=== PATIENT | female | born 1955 | race Caucasian/White ===

== ENCOUNTER → 2023-05-21 | Emergency (ER) | payer OTHER ==
--- OUTSIDE RECORDS SUMMARY | 2023-05-21 14:45 | XMS REPORT | Clinical Summary ---
Author Name Unknown Organization [facility] Address [address] [place] [address] Care Team Providers Care Medical Health Researcher Name Role Phone Rex Allen MD Unavailable Billy Oglesby MD Primary Care Provider [phone] Allergies Active Allergy Reactions Criticality Noted Date Comments Lisinopril 05/19/2020 cough Medications Medication Sig Dispensed Refills Start Date End Date Status alendronate (FOSAMAX) 35 mg tablet TAKE ONE (1) TABLET(S) BY MOUTH EVERY WEEK 30 MINUTES BEFORE THE FIRST FOOD, BEVERAGE, OR MEDICINE OF THE DAY WITH PLAIN WATER. 0 11/27/2022 Active atorvastatin (LIPITOR) 20 mg tablet TAKE ONE (1) TABLET(S) BY MOUTH ONCE A DAY. 0 Active buPROPion (WELLBUTRIN XL) 300 mg 24 hr tablet TAKE ONE (1) TABLET(S) BY MOUTH EVERY MORNING. 0 02/19/2023 Active carvedilol (COREG) 6.25 mg tablet TAKE ONE (1) TABLET(S) BY MOUTH TWICE A DAY WITH MEALS. 0 02/19/2023 Active clobetasol (TEMOVATE) 0.05% ointment APPLY A SMALL AMOUNT TO AFFECTED AREA TWICE WEEKLY. 0 03/02/2023 Active melatonin 3 mg tablet Take 1 tablet (3 mg) by mouth nightly as needed. 0 Active acetaminophen (TYLENOL) 325 mg tablet Take 1 tablet (325 mg) by mouth every 4 (four) hours as needed for mild pain. 0 Active prochlorperazine (Compazine) 10 mg tabletIndications: Malignant neoplasm of endometrium,Carcin omatosis of peritoneal cavity Take 1 tablet (10 mg) by mouth every 6 (six) hours as needed for nausea or vomiting (breakthrough). 30 tablet 3 05/12/2023 Active ondansetron (Zofran) 8 mg tabletIndications: cancer chemotherapy-induc ed nausea and vomiting,preventio n of chemotherapy-induc ed nausea and vomiting Take 1 tablet (8 mg) by mouth every 12 (twelve) hours as needed for nausea or vomiting. for two days after chemotherapy then, PRN. 15 tablet 3 05/12/2023 Active traMADol (Ultram) 50 mg tabletIndications: Malignant neoplasm of endometrium,Carcin omatosis of peritoneal cavity Take 1 tablet (50 mg) by mouth every 6 (six) hours as needed for moderate pain. 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 Hypertension 04/21/2023 Lichen sclerosus 04/21/2023 Chronic kidney disease stage 3 04/21/2023 Hyperlipidemia 04/21/2023 Family history of breast cancer gene BRCA mutati on 04/21/2023 Malignant neoplasm of endometrium 04/05/2023 Encounters Date Type Department Care Team Description 05/21/2023 Mobile Encounter MD [facility] Breast [facility] On[facility] [address] [place] [address] Jaycob Pascual MD 05/21/2023 Nurse Triage [facility] [place] [address] Prince Mulligan APRN 05/20/2023 Telephone MD [facility] - Infusion [address] [address] Pool Grant Jr., RN Follow-up 05/19/2023 7:45 AM SAFETY ADVISOR Infusion MD [facility] [place] [facility] [address] [address] Rose Mary Chong PA Carcinomatosis of peritoneal cavity (Primary Dx); Malignant neoplasm of endometrium 05/19/2023 Travel 05/18/2023 Orders Only [facility] [address] [place] [id number] Billy Oglesby MD Malignant neoplasm of endometrium (Primary Dx); Carcinomatosis of peritoneal cavity 05/12/2023 8:00 AM SAFETY ADVISOR Follow-Up [facility] [address] [place] [id number] Billy Oglesby MD Encounter for examination prior to antineoplastic chemotherapy (Primary Dx); Malignant neoplasm of endometrium; Carcinomatosis of peritoneal cavity 05/12/2023 Travel 05/09/2023 Orders Only [facility] [address] [place] [address] Rose Mary Chong PA Malignant neoplasm of endometrium (Primary Dx); Carcinomatosis of peritoneal cavity; Encounter for examination prior to antineoplastic chemotherapy 05/05/2023 9:30 AM SAFETY ADVISOR Follow-Up [facility] [address] [place] [id number] Billy Oglesby MD Malignant neoplasm of endometrium (Primary Dx) 05/05/2023 Travel 04/29/2023 Telephone [facility] [address] [place] [phone] Rose Mary Chong PA 04/28/2023 1:45 PM SAFETY ADVISOR Ancillary Procedure [address] [address] Rose Mary Chong PA Malignant neoplasm of endometrium 04/28/2023 Travel 04/26/2023 Orders Only [facility] [address] [place] [address] Rose Mary Chong PA Malignant neoplasm of endometrium (Primary Dx) 04/22/2023 Lab Requisition [facility] Travis Villasenor MD Tyler, Latonia Evette, MD Discharge Disposition: Home 04/21/2023 10:00 AM SAFETY ADVISOR Office Visit [facility] [address] [place] [phone] Billy Oglesby MD Malignant neoplasm of endometrium (Primary Dx); Chronic kidney disease stage 3; Hypertension; Family history of breast cancer gene BRCA mutation; Lichen sclerosus 04/21/2023 9:30 AM SAFETY ADVISOR [facility] PATIENT ACCESS Billy Oglesby MD 04/21/2023 Travel 04/07/2023 8:10 PM SAFETY ADVISOR Ancillary Procedure [facility] [address] [place] [id number] Billy Oglesby MD Cancer 04/07/2023 8:05 PM SAFETY ADVISOR Ancillary Procedure [facility] [address] [place] [id number] Billy Oglesby MD Cancer 04/07/2023 8:00 PM SAFETY ADVISOR Ancillary Procedure [facility] [address] [place] [id number] Billy Oglesby MD Cancer 04/06/2023 Lab Requisition [facility] Travis Villasenor MD Nguyen, Huy Q Discharge Disposition: Home after 05/21/2022 Surgical History Surgery Date Site/Laterality Comments COLONOSCOPY 3 -4 yrs? HERNIA REPAIR 20yrs hiatel hernia repair, with esopogus repair LIVER BIOPSY 20yrs with hernia repair KNEE SURGERY Right meniscus repair CATARACT EXTRACTION, BILATERAL Right Medical History Medical History Date Comments Hypertension Feb 2020 Hyperlipidemia 10yrs? Cyst of breast yrs firocystic Fatty liver 20 yrs mild Diverticulitis 4yrs mild Irritable bowel syndrome 4ys Kidney failure May 2020 Urinary incontinence yrs Menopause age 37 Uterine leiomyoma yrs one small Scoliosis Feb 2022 Depressive disorder yrs Anxiety yrs Squamous cell carcinoma in situ of skin October Lichen sclerosus Glaucoma Family History Medical History Relation Name Comments Prostate cancer Brother Messi Naidu 2022 Lung cancer Maternal Aunt Zayra Lezama Prostate cancer Maternal Uncle 1 Mauricio Brothers d Lung cancer Maternal Uncle 2 Lenoard Brothere d Kidney cancer Mother Raquel Naidu Breast cancer Niece Georgina Werner TNBC positive for BRCA Relation Name Status Comments Brother Messi Naidu Alive Maternal Aunt Zayra Lezama (Age 75) Maternal Uncle 1 Mauricio Brothers (Age 80) Maternal Uncle 2 Lenoard Brothere (Age 72) Mother Raquel Naidu (Age 81) Niece Georgina Werner Alive Social History Tobacco Use Types Packs/Day Years Used Date Smoking Tobacco: Never Passive Smoke Exposure: Never Smokeless Tobacco: Never Tobacco Cessation:Counseling Given: Not Answered Alcohol Use Standard Drinks/Week Comments Never 0 (1 standard drink = 0.6 oz pur e alcohol) Sex and Gender Information Value Date Recorded Sex Assigned at Female 04/05/2023 12:45 PM SAFETY ADVISOR Gender Identity Female 04/05/2023 12:45 PM SAFETY ADVISOR Sexual Orientation Straight 04/05/2023 12 :45 PM SAFETY ADVISOR Job Start Date Occupation Industry Not on file Not on file Not on file Obstetrics History Para Term AB IAB SAB Ectopic Multiple Livin g Live Births 2 2 2 2 Date Outcome GA Total Labor Labor/2nd/3rd Weight Sex Delivery Anes PTL Mile A1 A5 Name Cl in Term Term Comments Menarche: age 11 Last PAP: 10/2022- normal Periods: Regular or Irregular Parity: age 19 HRT: total 10-15 years- premarin OCP:age [age] Menopause: age 37 natural- Fertility Tx: none Breastfeed: 3 months each child Last Filed Vital Signs Vital Sign Reading Time Taken Comments Blood Pressure 116/76 05/19/2023 1:08 PM SAFETY ADVISOR Pulse 71 05/19/2023 1:08 PM SAFETY ADVISOR Temperature 36.6 C (97.9 F) 05/19/2023 8:08 AM CS T Respiratory Rate 16 05/19/2023 1:08 PM SAFETY ADVISOR Oxygen Saturation 99% 05/19/2023 8:08 AM SAFETY ADVISOR Inhaled Oxygen Concentration - - Weight 77.1 kg (169 lb 15.6 oz) 05/19/2023 8:03 AM SAFETY ADVISOR Height 152.5 cm (5' 0.04") 05/19/2023 8:03 AM CS T Body Mass Index 33.15 05/19/2023 8:03 AM SAFETY ADVISOR Plan of Treatment Upcoming Encounters Date Type Department Care Team Description 06/01/2023 12:00 PM SAFETY ADVISOR Telemedicine MD [facility] [place] [facility] [address] [place] [phone] Rose Mary Chong PA [address] [place] [address] 06/09/2023 7:30 AM SAFETY ADVISOR Lab MD [facility] [address] [place] [address] [place] [address] Rose Mary Chong PA [address] [place] [address] 06/09/2023 8:30 AM SAFETY ADVISOR Follow-Up MD [facility] [place] [facility] Gyne[facility] Oncology [address] [place] [address] Billy Oglesby MD [address] [place] [address] 06/09/2023 9:00 AM SAFETY ADVISOR Infusion MD [facility] [place] [facility] [address] [place] [address] Rose Mary Chong PA [address] [place] [address] Health Maintenance Due Date Last Done Comments COVID-19 Vaccination (#1) 1960 Procedures Procedure Name Priority Date/Time Associated Diagnosis Comments .CBC Routine 05/19/2023 7:05 AM SAFETY ADVISOR Malignant neoplasm of endometrium Carcinomatosis of peritoneal cavity CREATININE Routine 05/19/2023 7:05 AM SAFETY ADVISOR Malignant neoplasm of endometrium Carcinomatosis of peritoneal cavity BLOOD UREA NITROGEN Routine 05/19/2023 7 :05 AM SAFETY ADVISOR Malignant neoplasm of endometrium Carcinomatosis of peritoneal cavity CALCIUM LEVEL Routine 05/19/2023 7:05 AM SAFETY ADVISOR Malignant neoplasm of endometrium Carcinomatosis of peritoneal cavity MAGNESIUM LEVEL Routine 05/19/2023 7:05 AM SAFETY ADVISOR Malignant neoplasm of endometrium Carcinomatosis of peritoneal cavity ELECTROLYTE PANEL Routine 05/19/2023 7:0 5 AM SAFETY ADVISOR Malignant neoplasm of endometrium Carcinomatosis of peritoneal cavity BILIRUBIN TOTAL Routine 05/19/2023 7:05 AM SAFETY ADVISOR Malignant neoplasm of endometrium Carcinomatosis of peritoneal cavity ALKALINE PHOSPHATASE Routine 05/19/2023 7:05 AM SAFETY ADVISOR Malignant neoplasm of endometrium Carcinomatosis of peritoneal cavity ALANINE AMINOTRANSFERASE Routine 023 7:05 AM SAFETY ADVISOR Malignant neoplasm of endometrium Carcinomatosis of peritoneal cavity ASPARTATE AMINOTRANSFERASE Routine 05/19/2023 7:05 AM SAFETY ADVISOR Malignant neoplasm of endometrium Carcinomatosis of peritoneal cavity COMPLETE BLOOD COUNT W/ DIFFERENTIAL Routine 05/19/2023 7:05 AM SAFETY ADVISOR Malignant neoplasm of endometrium Carcinomatosis of peritoneal cavity .CBC Routine 05/05/2023 11:32 AM SAFETY ADVISOR Malignant neoplasm of endometrium COMPLETE BLOOD COUNT W/ DIFFERENTIAL Routine 05/05/2023 11:32 AM SAFETY ADVISOR Malignant neoplasm of endometrium CT CHEST ABDOMEN PELVIS W CONTRAST Routine 04/28/2023 2:59 PM SAFETY ADVISOR Malignant neoplasm of endometrium .CBC Routine 04/21/2023 12:11 PM SAFETY ADVISOR Malignant neoplasm of endometrium CANCER ANTIGEN 125 Routine 04/21/2023 12 :11 PM SAFETY ADVISOR Malignant neoplasm of endometrium ALBUMIN LEVEL Routine 04/21/2023 12:11 PM SAFETY ADVISOR Malignant neoplasm of endometrium COMPLETE BLOOD COUNT W/ DIFFERENTIAL Routine 04/21/2023 12:11 PM SAFETY ADVISOR Malignant neoplasm of endometrium MAGNESIUM LEVEL Routine 04/21/2023 12:11 PM SAFETY ADVISOR Malignant neoplasm of endometrium ELECTROLYTE PANEL Routine 04/21/2023 12: 11 PM SAFETY ADVISOR Malignant neoplasm of endometrium ASPARTATE AMINOTRANSFERASE Routine 04/21/2023 12:11 PM SAFETY ADVISOR Malignant neoplasm of endometrium ALANINE AMINOTRANSFERASE Routine 023 12:11 PM SAFETY ADVISOR Malignant neoplasm of endometrium FRACTIONATED BILIRUBIN Routine 12:11 PM SAFETY ADVISOR Malignant neoplasm of endometrium CREATININE Routine 04/21/2023 12:11 PM SAFETY ADVISOR Malignant neoplasm of endometrium BLOOD UREA NITROGEN Routine 04/21/2023 1 2:11 PM SAFETY ADVISOR Malignant neoplasm of endometrium GLUCOSE, RANDOM Routine 04/21/2023 12:11 PM SAFETY ADVISOR Malignant neoplasm of endometrium HEMOGLOBIN A1C Routine 04/21/2023 12:11 PM SAFETY ADVISOR Malignant neoplasm of endometrium HIV 1/2 ANTIGEN/ANTIBODY, FOURTH GEN W/RFL Routine 04/21/2023 12:11 PM SAFETY ADVISOR Malignant neoplasm of endometrium HEPATITIS B SURFACE ANTIGEN Routine 04/21/2023 12:11 PM SAFETY ADVISOR Malignant neoplasm of endometrium HEPATITIS C VIRUS ANTIBODY Routine 04/21/2023 12:11 PM SAFETY ADVISOR Malignant neoplasm of endometrium PATHOLOGY OUTSIDE INTERPRETATION Routine 03/10/2023 OSI US PELVIC Routine 02/01/2023 2:28 PM CDT Cancer OSI US BREAST Routine 02/01/2023 2:28 PM CDT Cancer OSI MAMMO BILATERAL Routine 02/01/2023 2 :27 PM CDT Cancer PATHOLOGY OUTSIDE INTERPRETATION Routine 11/18/2022 after 05/21/2022 Results * (ABNORMAL) .CBC (05/19/2023 7:05 AM SAFETY ADVISOR) Only the most recent of3 resultswithin the time period is included. Pathologist [facility] White Blood Cell 5.6 4.1 - 10.5 K/uL 05/19/2023 7:10 AM SAFETY ADVISOR [place] Red Blood Cell 4.15 3.99 - 5.46 M/uL 05/19/2023 7:10 AM [facility] Hemoglobin 12.9 12.2 - 15.3 g/dL 05/19/2023 7:10 AM [facility] Hematocrit 40.0 36.4 - 46.8 % 05/19/2023 7:10 AM [facility] Mean Cell Volume 96 82 - 99 fL 05/19/2023 7:10 AM [facility] Mean Cell Hemoglobin 31.1 26.6 - 33.2 pg 05/19/2023 7:10 AM [facility] Mean Cell Hemoglobin Concentration 32.3 31.1 - 35.2 g/dL 05/19/2023 7:10 AM [facility] RDW-SD 49.9(H) 37.5 - 49.7 fL 05/19/2023 7:10 AM [facility] Red Cell Diameter Width 14.0 11.6 - 15.5 % 05/19/2023 7:10 AM [facility] Platelet 213 160 - 397 K/uL 05/19/2023 7:10 AM [facility] Mean Platelet Volume 10.2 9.1 - 12.6 fL 05/19/2023 7:10 AM [facility] Neutrophil % 55.9 43.2 - 72.7 % 05/19/2023 7:10 AM [facility] Lymphocyte % 25.6 16.8 - 46.2 % 05/19/2023 7:10 AM [facility] Monocyte % 15.3(H) 5.1 - 12.5 % 05/19/2023 7:10 AM [facility] Eosinophil % 2.3 0.4 - 6.3 % 05/19/2023 7:10 AM [facility] Basophil % 0.7 0.2 - 1.4 % 05/19/2023 7:10 AM [facility] IGRE % 0.2 0.1 - 1.5 % 05/19/2023 7:10 AM [facility] Comment:The IGRE% includes M etamyelocytes, Myelocytes and Promyelocytes. Neutrophil Abs 3.14 1.95 - 7.25 K/uL 05/19/2023 7:10 AM [facility] Lymphocyte Abs 1.44 1.01 - 3.24 K/uL 05/19/2023 7:10 AM [facility] Monocyte Abs 0.86(H) 0.24 - 0.85 K/uL 05/19/2023 7:10 AM [facility] Eosinophil Abs 0.13 0.02 - 0.50 K/uL 05/19/2023 7:10 AM [facility] Basophil Abs 0.04 0.02 - 0.09 K/uL 05/19/2023 7:10 AM [facility] IG Abs 0.01 0.01 - 0.12 K/uL 05/19/2023 7:10 AM [facility] Blood Peripheral blood specimen / Unknown Venipuncture / Unknown 05/19/2023 7:05 AM SAFETY ADVISOR 05/19/2023 7:05 AM SAFETY ADVISOR Rose Mary [facility]ON[facility] LAB BLOOD ORDERABLES [address] [address] * BUN (05/19/2023 7:05 AM SAFETY ADVISOR) Only the most recent of2 resultswithin the time period is included. BUN 20 6 - 23 mg/dL 05/19/2023 7 :28 AM [facility] Blood Peripheral blood specimen / Unknown Venipuncture / Unknown 05/19/2023 7:05 AM SAFETY ADVISOR 05/19/2023 7:05 AM SAFETY ADVISOR Rose Mary [facility] LAB BLOOD ORDERABLES [address] [address] * ALT (05/19/2023 7:05 AM SAFETY ADVISOR) Only the most recent of2 resultswithin the time period is included. ALT 17 <=33 U/L 05/19/2023 7:2 8 AM [facility] Blood Peripheral blood specimen / Unknown Venipuncture / Unknown 05/19/2023 7:05 AM SAFETY ADVISOR 05/19/2023 7:05 AM SAFETY ADVISOR Rose Mayr [facility] BLOOD ORDERABLES [address], [address] [address] * AST (05/19/2023 7:05 AM SAFETY ADVISOR) Only the most recent of2 resultswithin the time period is included. AST 26 <=32 U/L 05/19/2023 7:2 8 AM SAFETY ADVISOR [place] Blood Peripheral blood specimen / Unknown Venipuncture / Unknown 05/19/2023 7:05 AM SAFETY ADVISOR 05/19/2023 7:05 AM SAFETY ADVISOR Rose Mary [facility] BLOOD ORDERABLES [address], [address] [address] * Alkaline phosphatase (05/19/2023 7:05 AM SAFETY ADVISOR) Alkaline Phosphatase 84 35 - 104 U/L 05/19/2023 7:28 AM SAFETY ADVISOR [place] Blood Peripheral blood specimen / Unknown Venipuncture / Unknown 05/19/2023 7:05 AM SAFETY ADVISOR 05/19/2023 7:05 AM SAFETY ADVISOR Rose Mary [facility] LAB BLOOD ORDERABLES [address], [address] [address] * Magnesium Level (05/19/2023 7:05 AM SAFETY ADVISOR) Only the most recent of2 resultswithin the time period is included. Magnesium Level 2.0 1.6 - 2.6 mg/dL 05/19/2023 7:28 AM [facility] Blood Peripheral blood specimen / Unknown Venipuncture / Unknown 05/19/2023 7:05 AM SAFETY ADVISOR 05/19/2023 7:05 AM SAFETY ADVISOR Rose Mary [facility]ONES LAB BLOOD ORDERABLES [address], [facility] [address] [place] [address] * (ABNORMAL) Creatinine (05/19/2023 7:05 AM SAFETY ADVISOR) Only the most recent of2 resultswithin the time period is included. Creatinine 1.11(H) 0.51 - 0.95 mg/dL 05/19/2023 7:28 AM [facility] eGFR 54(L) >=60 mL/min/1. 73 sq. m 05/19/2023 7:28 AM [facility] Comment: The eGFRcr is calculated with the 2020 CKD-EPI creatinine equation using creatinine, patient's age, and sex for adults 18 years of age and older. Other factors, especially muscle mass, may affect accuracy and need to be considered. According to the Kidney Disease: Improving Global Outcomes (KDIGO) CKD Work Group 2012 Clinical Practice Guideline, chronic kidney disease (CKD) is defined as the abnormalities of kidney structure or function, present for more than 3 months, with implications for health. CKD should be classified by cause, GFR category, and albuminuria category. KDIGO guidelines provide the following GFR categories. Stage / Description / GFR mL/min/1.73 m2: G1* / Normal or high / >= 90 G2* / Mildly decreased / 60-89 G3a / Mildly to moderately decreased / 45-59 G3b / Moderately to severely decreased / 30-44 G4 / Severely decreased / 15-29 G5 / Kidney failure / <15 *In the absence of evidence of kidney damage, neither G1 nor G2 fulfill criteria for CKD. Blood Peripheral blood specimen / Unknown Venipuncture / Unknown 05/19/2023 7:05 AM SAFETY ADVISOR 05/19/2023 7:05 AM SAFETY ADVISOR Rose Mary [facility] LAB BLOOD ORDERABLES [address], [facility] [address] [place] [address] * Calcium Level Total (05/19/2023 7:05 AM SAFETY ADVISOR) Calcium Level Total 9.4 8.2 - 10.2 mg/dL 05/19/2023 7:28 AM [facility] Blood Peripheral blood specimen / Unknown Venipuncture / Unknown 05/19/2023 7:05 AM SAFETY ADVISOR 05/19/2023 7:05 AM SAFETY ADVISOR Rose Mary [facility]ON[facility] LAB BLOOD ORDERABLES [address], [facility] [address] [place] [address] * Bilirubin, total (05/19/2023 7:05 AM SAFETY ADVISOR) Bilirubin Total 0.5 <=1.2 mg/dL 05/19/20 7:28 AM [facility] Blood Peripheral blood specimen / Unknown Venipuncture / Unknown 05/19/2023 7:05 AM SAFETY ADVISOR 05/19/2023 7:05 AM SAFETY ADVISOR Narrative [place] - 05/19/2023 7:28 AM SAFETY ADVISOR /Children >/= 1 month Reference Ranges: 0 - 1.0 mg/dL Adult Reference Ranges: 0 - 1.2 mg/dL Indocyanine Green (ICG) may cause falsely elevated bilirubin results. Total and direct bilirubin must not be measured from samples containing indocyanine green. False elevation of total bilirubin can be seen in patients with IgG concentrations above 28 g/L. Rose Mary [facility]ONES LAB BLOOD ORDERABLES [address], [facility] [address] [place] [address] * (ABNORMAL) Electrolyte Panel (05/19/2023 7:05 AM SAFETY ADVISOR) Only the most recent of2 resultswithin the time period is included. Sodium Level 143 136 - 145 mmol/L 05/19/2023 7:28 AM [facility] Potassium Level 4.3 3.4 - 4.5 mmol/L 05/19/2023 7:28 AM SAFETY ADVISOR [place] Chloride 108(H) 98 - 107 mmol/L 05/19/2023 7:28 AM SAFETY ADVISOR [place] CO2 25 22 - 29 mmol/L 05/19/2023 7:28 AM SAFETY ADVISOR [place] Anion Gap 10 4 - 14 mmol/L 05/19/2023 7:28 AM SAFETY ADVISOR [place] Blood Peripheral blood specimen / Unknown Venipuncture / Unknown 05/19/2023 7:05 AM SAFETY ADVISOR 05/19/2023 7:05 AM SAFETY ADVISOR Rose Mary JONES LAB BLOOD ORDERABLES [facility] [place] [address] [facility], [facility] [address] [place] [address] * CT Chest Abdomen Pelvis with Contrast (04/28/2023 2:59 PM SAFETY ADVISOR) Anatomical Region Laterality Modality Abdomen, Pelvis, Chest Computed Tomography 04/29/2023 11:3 8 AM SAFETY ADVISOR Impressions 04/29/2023 4:48 PM SAFETY ADVISOR 1. Left ovarian multilocular cystic lesion maybe primary ovarian cancer or metastatic disease. The primary endometrial mass is not well visualized. Pelvic MRI may be helpful. 2. Enlarged left paraaortic lymph node likely metastatic disease. 3. Mild intra-abdominal and pelvic peritoneal carcinomatosis. 4. Mild fat stranding around the appendix may represent appendicitis or may be due to peritoneal carcinomatosis. Correlate with exam. 5. Too small to characterize hepatic lesions can be followed. 7. Right middle lobe nodular opacity likely atelectasis or infectious/inflammatory process. Attention in follow-up. Findings discussed with Dr. Rose Mary Chong by Dr. Blandon on 04/29/2023 3:37 PM. ACTIONABLE ITEMS/RECOMMENDATIONS: Significant Finding: Mild periappendiceal inflammatory changes may be due to carcinomatosis or appendicitis. Recommendation: Correlate with physical exam Narrative 04/29/2023 4:48 PM SAFETY ADVISOR FULL RESULT: Examination: CT CHEST ABDOMEN PELVIS W CONTRAST on 04/28/2023 2:59 PM. Clinical History: Malignant neoplasm of endometrium Indication: Endometrial Cancer, treatment planning Comparison: Pelvic ultrasound on 02/01/2023. Technique: CT CHEST ABDOMEN PELVIS W CONTRAST. Findings: CHEST: Lungs and Pleura: Small right middle lobe nodular opacity measuring 0.7 cm (series 9, image 77) likely atelectasis or infectious/inflammatory process. No pleural effusion. Cardiomediastinum: The heart is normal in size. No pericardial effusion. Lymph nodes: No lymphadenopathy. ABDOMEN AND PELVIS: Hepatobiliary: Multiple hepatic cysts and too small to characterize hepatic lesions. No biliary dilatation. No cholecystitis. Spleen: No splenomegaly. Pancreas: No mass or ductal dilatation. Adrenal Glands: No mass. Kidneys, Ureters, Bladder: No hydronephrosis. No suspicious renal lesion. No bladder mass. Gastrointestinal Tract: Mild fat stranding around the appendix (8/208) may represent appendicitis or may be due to peritoneal carcinomatosis. No obstruction. Diverticulosis of sigmoid colon without diverticulitis. Rectosigmoid serosal implants (8/232-237). Pelvic Organs: Left ovarian or multilocular cystic lesion (8/225) measures 3.8 x 2.2 cm. Unremarkable right ovary (8/223) measures 1.5 x 2.1 cm. Uterus containing a few fibroids, the largest measuring 1.6 x 1.8 cm noted. Mild carcinomatosis involves the uterus. The primary endometrial mass is not well visualized, however heterogeneity of the uterus limits evaluation. Peritoneum/Retroperitoneum: Pelvic nodularity and fat stranding and peritoneal thickening and enhancement for example a 1.2 cm right perirectal implant (8/233) and mild omental fatty stranding (8, image 186) concerning for peritoneal carcinomatosis. No carcinomatosis under the diaphragms, along the falciform ligament, perihepatic or perisplenic spaces, lesser sac or mesentery. No ascites. Lymph Nodes: Left paraaortic lymph node inferior to renal vein (8/181) measuring 1.6 x 1.7 cm. No pelvic and inguinal lymphadenopathy. MUSCULOSKELETAL: No suspicious skeletal lesion. Degenerative changes of the lumbar spine. Procedure Note Kamryn Blandon MD - 04/29/2023 FULL RESULT: Examination: CT CHEST ABDOMEN PELVIS W CONTRAST on 04/28/2023 2:59 PM. Clinical History: Malignant neoplasm of endometrium Indication: Endometrial Cancer, treatment planning Comparison: Pelvic ultrasound on 02/01/2023. Technique: CT CHEST ABDOMEN PELVIS W CONTRAST. Findings: CHEST: Lungs and Pleura: Small right middle lobe nodular opacity measuring 0.7 cm(series 9, image 77) likely atelectasis or infectious/inflammatoryprocess. No pleural effusion. Cardiomediastinum: The heart is normal in size. No pericardial effusion. Lymph nodes: No lymphadenopathy. ABDOMEN AND PELVIS: Hepatobiliary: Multiple hepatic cysts and too small to characterizehepatic lesions. No biliary dilatation. No cholecystitis. Spleen: No splenomegaly. Pancreas: No mass or ductal dilatation. Adrenal Glands: No mass. Kidneys, Ureters, Bladder: No hydronephrosis. No suspicious renal lesion.No bladder mass. Gastrointestinal Tract: Mild fat stranding around the appendix (8/208) mayrepresent appendicitis or may be due to peritoneal carcinomatosis. Noobstruction. Diverticulosis of sigmoid colon without diverticulitis.Rectosigmoid serosal implants (8/232-237). Pelvic Organs: Left ovarian or multilocular cystic lesion (8/225) measures3.8 x 2.2 cm. Unremarkable right ovary (8/223) measures 1.5 x 2.1 cm.Uterus containing a few fibroids, the largest measuring 1.6 x 1.8 cmnoted. Mild carcinomatosis involves the uterus. The primary endometrialmass is not well visualized, however heterogeneity of the uterus limitsevaluation. Peritoneum/Retroperitoneum: Pelvic nodularity and fat stranding andperitoneal thickening and enhancement for example a 1.2 cm rightperirectal implant (8/233) and mild omental fatty stranding (8, image 186)concerning for peritoneal carcinomatosis. No carcinomatosis under thediaphragms, along the falciform ligament, perihepatic or perisplenicspaces, lesser sac or mesentery. No ascites. Lymph Nodes: Left paraaortic lymph node inferior to renal vein (8/181)measuring 1.6 x 1.7 cm. No pelvic and inguinal lymphadenopathy. MUSCULOSKELETAL: No suspicious skeletal lesion. Degenerative changes of the lumbar spine. IMPRESSION: 1. Left ovarian multilocular cystic lesion maybe primary ovarian cancer ormetastatic disease. The primary endometrial mass is not well visualized.Pelvic MRI may be helpful. 2. Enlarged left paraaortic lymph node likely metastatic disease. 3. Mild intra-abdominal and pelvic peritoneal carcinomatosis. 4. Mild fat stranding around the appendix may represent appendicitis ormay be due to peritoneal carcinomatosis. Correlate with exam. 5. Too small to characterize hepatic lesions can be followed. 7. Right middle lobe nodular opacity likely atelectasis orinfectious/inflammatory process. Attention in follow-up. Findings discussed with Dr. Rose Mary Chong by Dr. Blandon on 04/29/2023 3:37PM. ACTIONABLE ITEMS/RECOMMENDATIONS: Significant Finding: Mildperiappendiceal inflammatory changes may be due to carcinomatosis orappendicitis. Recommendation: Correlate with physical exam Rose Mary JONES IMG CT ORDERABLES * Glucose, Random (04/21/2023 12:11 PM SAFETY ADVISOR) Pathologist [facility] Glucose Random 110 70 - 199 mg/dL 04/21/2023 2:40 PM SAFETY ADVISOR [place] Blood Peripheral blood specimen / Unknown Venipuncture / Unknown 04/21/2023 12:11 PM SAFETY ADVISOR 04/21/2023 12:12 PM SAFETY ADVISOR Narrative [place] - 04/21/2023 2:40 PM SAFETY ADVISOR Effective 12/17/15, the glucose reference intervals have been updated based on [place] [employer] guidelines (Standards of Medical Care in Diabetes 2016. Diabetes Care 2016; 39: S13-S22). Fasting blood glucose: Normal: 70-99 mg/dL Impaired fasting glucose (increased risk for diabetes or pre-diabetes): 100-125 mg/dL Diabetes mellitus: >/=126 mg/dL Random blood glucose: Normal: 70-199 mg/dL Note: Random glucose >100 mg/dL is associated with increased risk for diabetes Rose Mary JONES LAB BLOOD ORDERABLES [facility] [address], [facility] [address] [place] [address] * HIV 1/2 Antigen/Antibody, Fourth Gen W/RFL (04/21/2023 12:11 PM SAFETY ADVISOR) HIV Ag/Ab, 4TH Gen NON-REACT BERTIN NON-REACT BERTIN 04/22/2023 4:51 AM SAFETY ADVISOR ADITI OCHOA) Comment: HIV-1 antigen and HIV-1/HIV-2 antibodies were not detected. There is no laboratory evidence of HIV infection. PLEASE NOTE: This information has been disclosed to you from records whose confidentiality may be protected by state law. If your state requires such protection, then the state law prohibits you from making any further disclosure of the information without the specific written consent of the person to whom it pertains, or as otherwise permitted by law. A general authorization for the release of medical or other information is NOT sufficient for this purpose. For additional information please refer to http://education.Playviews/faq/EDP132 (This link is being provided for informational/ educational purposes only.) The performance of this assay has not been clinically validated in patients less than 2 years old. Blood Peripheral blood specimen / Unknown Venipuncture / Unknown 04/21/2023 12:11 PM SAFETY ADVISOR 04/21/2023 12:12 PM SAFETY ADVISOR Narrative ADITI OCHOA) - 04/22/2023 4:51 AM SAFETY ADVISOR Performing Organization Information: [facility] [address] [place] [id number] Holly Paul Rose Mary JONES LAB BLOOD ORDERABLES ADITI OCHOA) * Fractionated Bilirubin (04/21/2023 12:11 PM SAFETY ADVISOR) Bilirubin Direct <0.2 <=0.3 mg/dL 04/21/2023 12:50 PM [facility] Comment:Indocyanine Green (I CG) may cause falsely elevated bilirubin results. Total and direct bilirubin must not be measured from samples containing indocyanine green. Bilirubin Indirect 2022 12:50 PM [facility] Comment:Unable to calculate Indirect Bilirubin result due to some parameters are outside reportable range Bilirubin Total 0.5 <=1.2 mg/dL 04/21/2023 12:50 PM [facility] Comment:Indocyanine Green (I CG) may cause falsely elevated bilirubin results. Total and direct bilirubin must not be measured from samples containing indocyanine green. False elevation of total bilirubin can be seen in patients with IgG concentrations above 28 g/L. Blood Peripheral blood specimen / Unknown Venipuncture / Unknown 04/21/2023 12:11 PM SAFETY ADVISOR 04/21/2023 12:12 PM SAFETY ADVISOR Rose Mary JONES LAB BLOOD ORDERABLES [facility] [address], [facility] [address] [place] [address] * Hepatitis C Virus Antibody (04/21/2023 12:11 PM SAFETY ADVISOR) [facility] HCVAb. Non Reactive Non Reactive 04/22/2023 9:28 AM SAFETY ADVISOR [facility] Blood Peripheral blood specimen / Unknown Venipuncture / Unknown 04/21/2023 12:11 PM SAFETY ADVISOR 04/21/2023 12:12 PM SAFETY ADVISOR Narrative [facility] - 04/22/2023 9:28 AM SAFETY ADVISOR Antibody detection in the immunocompromised and immunosuppressed population may be delayed or absent entirely. Therefore serial testing, correlation with other clinical findings, and supplemental testing (if available) should be taken into consideration when interpreting the results. Rose Mary JONES LAB BLOOD ORDERABLES [facility] Unless otherwise noted, all lab tests performed by: Division of Pathology and Laboratory Medicine [address] [place] [id number] * Hepatitis B Surface Ag (04/21/2023 12:11 PM SAFETY ADVISOR) [facility] HBsAg. Non Reactive Non Reactive 04/22/2023 9:28 AM SAFETY ADVISOR [facility] Blood Peripheral blood specimen / Unknown Venipuncture / Unknown 04/21/2023 12:11 PM SAFETY ADVISOR 04/21/2023 12:12 PM SAFETY ADVISOR Rose Mary JONES LAB BLOOD ORDERABLES [facility] Unless otherwise noted, all lab tests performed by: Division of Pathology and Laboratory Medicine [address] [place] [id number] * (ABNORMAL) CA 125 (04/21/2023 12:11 PM SAFETY ADVISOR) Pathologist [facility] Cancer Antigen 125 41.3(H) <=38.0 U/mL 04/21/2023 12:50 PM SAFETY ADVISOR [place] Blood Peripheral blood specimen / Unknown Venipuncture / Unknown 04/21/2023 12:11 PM SAFETY ADVISOR 04/21/2023 12:[address] [facility] - 04/21/2023 12:50 PM SAFETY ADVISOR Results greater than 11,500.0 U/mL may not be reliable due to matrix effect with extended dilution as it exceeds the fishing accessories maker's recommended limit. Caution should be exercised when interpreting such values and done in conjunction with clinical context. This test is measured by electrochemiluminescence immunoassay on [employer] [place] immunoassay analyzers. Results obtained in different methods are not interchangeable. Reference intervals are not available for male patients. Results should be interpreted in conjunction with clinical context. Rose Mary JONES LAB BLOOD ORDERABLES [address] [address] * Hemoglobin A1c (04/21/2023 12:11 PM SAFETY ADVISOR) [facility] Hemoglobin A1c 5.4 4.3 - 5.6 % 12:29 PM [facility] Blood Peripheral blood specimen / Unknown Venipuncture / Unknown 04/21/2023 12:11 PM SAFETY ADVISOR 04/21/2023 12:[address] [facility] - 04/21/2023 12:29 PM SAFETY ADVISOR HbA1c values >=6.5% are diagnostic of diabetes mellitus. Diagnosis should be confirmed by repeat testing. Therapeutic Action suggested: >8.0% HbA1c; Goal of therapy: <7.0% HbA1c Rose Mary JONES LAB BLOOD ORDERABLES [address] [address] * Albumin Level (04/21/2023 12:11 PM SAFETY ADVISOR) Albumin Level 4.3 3.5 - 5.2 gm/dL 04/21/2023 12:50 PM [facility] Blood Peripheral blood specimen / Unknown Venipuncture / Unknown 04/21/2023 12:11 PM SAFETY ADVISOR 04/21/2023 12:12 PM SAFETY ADVISOR Rose Mary JONES LAB BLOOD ORDERABLES [facility] [place] [address] [place] [address] [place] [address] * Pathology Outside Interpretation (03/10/2023) Only the most recent of2 resultswithin the time period is included. Pathologist [facility] Materials Received Accession#, Stained, Block, Unstained Collected Received A. [id number], 7 SS, 0 BLOCKS, 0 USS 03/10/2023 04/22/2023 04/25/2023 9:35 AM [facility] Diagnosis Seven outside slides ([id number], collected on 03/10/2023), designated as endometrial (A1-1, A1-2 and IHC x 5): HIGH GRADE CARCINOMA, CONSISTENT WITH SEROUS CARCINOMA. (SEE COMMENT) BCL/FQS 04/25/2023 9:35 AM [facility] Comment Immunohistochemical stains performed by the contributing pathologist show that the tumor cells are positive for p16 (diffuse) and ER (70%, moderate), while negative for p53 (aberrant, null phenotype). Ki-67 proliferation index is elevated (approximately 90%). The histologic and immunohistochemical findings are in keeping with the above diagnosis. 04/25/2023 9:35 AM [facility] Biomarker Block(s) T: A1 N: N/A 04/25/2023 9:35 AM [facility] Disclaimer "Some tests reported here may have been developed and performance characteristics determined by [facility] Pathology and Laboratory Medicine. These tests have not been specifically cleared or approved by the U.S. Food and Drug Administration. If applicable, controls were reviewed and showed appropriate reactivity." 04/25/2023 9:35 AM SAFETY ADVISOR [facility] Tissue 03/10/2023 04/22/2023 11: 07 AM SAFETY ADVISOR Juliet Vargas MD LAB PATHOLOGY OR DERABLES [facility] [place] [id number] [place] [address], [place] * [facility] US Pelvic (02/01/2023 2:28 PM CDT) Narrative Systemgenerated, Documentation - 04/07/2023 2:28 PM SAFETY ADVISOR Study acquired at another institution. For comparison only. No [facility] originated interpretation requested or available. Billy Oglesby MD IMG OUTSIDE IMAGE OR DERABLES * [facility] US Breast (02/01/2023 2:28 PM CDT) Narrative [facility] - 04/07/2023 2:28 PM SAFETY ADVISOR Study acquired at another institution. For comparison only. No [facility] originated interpretation requested or available. Billy Oglesby MD IMG OUTSIDE IMAGE OR DERABLES Performing Organization Address City/[facility]/ZIP Co de Phone Number [facility] * [facility] Mammo (02/01/2023 2:27 PM CDT) Narrative [facility] - 04/07/2023 2:27 PM SAFETY ADVISOR Study acquired at another institution. For comparison only. No [facility] originated interpretation requested or available. Billy Oglesby MD IMG OUTSIDE IMAGE OR DERABLES [facility] after 05/21/2022 Care Teams Medical Health Researcher Relationship Specialty Start Date End Date Rex Allen MD PCP - External Referring General Surgery 03/24/23 Billy Oglesby MD [address] [place] [address] PCP - General Gynecological Oncology 03/24/23
[2023-05-21 15:57] LABS: Specific Gravity 1.019 (1.005-1.030); Urine Bacteria None Seen /HPF (<20); Urine Bilirubin NEGATIVE (Negative); Urine Blood Trace (Negative); Urine Clarity Turbid (Clear); Urine Color Yellow (Yellow); Urine Glucose NEGATIVE (Negative); Urine Mucus Slight /HPF (None Seen); Urine Protein NEGATIVE (Negative); Urine RBC <5 /HPF (None Seen); Urine Urobilinogen Normal (Normal); Urine pH 5.5 (5.0-7.0)
[2023-05-21 16:04] LABS: Albumin 3.4 g/dL (3.4-5.0); Bilirubin Total 0.7 mg/dL (0.2-1.0); Potassium 3.3 mEq/L (3.5-5.1); Protein, Total 7.3 g/dL (6.4-8.2)
[2023-05-21 16:09] LABS: Absolute Lymphocytes (CBC) 1.1 K/uL (0.7-4.9); Hematocrit 40.1 % (36.0-45.0); Lymphocytes % 16.2 % (15.3-44.8); MCV 92.2 fL (80-100); MPV 9.6 fL (7.6-11.3); Platelets 176 thou/uL (152-406); RBC Red Blood Cell Count 4.35 M/uL (3.86-4.86)
--- NOTE | 2023-05-21 16:45 | RAD REPORT ---
EXAM DESCRIPTION: CT - Abdomen Pelvis W Contrast - 05/21/2023 4:32 pm CLINICAL HISTORY: Abdominal pain COMPARISON: Ultrasound May 2022 TECHNIQUE: Computed axial tomography of the abdomen pelvis was obtained. 100 cc Isovue-300 was admin istered intravenously. Oral contrast was not requested which limits evaluation of bowel and appendix All CT scans are performed using dose optimization technique as appropriate and may include automated exposure control or mA/KV adjustment according to patient size. FINDINGS: Several hepatic cysts. Largest 4.3 centimeters Spleen, pancreas, adrenal and kidneys appear unremarkable. There is no evidence of diverticulitis. 1.8 centimeter left ovarian cyst. No free fluid IMPRESSION: No acute abnormality is displayed.
--- NOTE | 2023-05-21 17:19 | EDPHYS ---
Physician Documentation [facility] Name: Regina Mcknight Age: 67 yrs Sex: Female : 1955 Arrival Date: 05/21/2023 Time: 14:42 Bed 7 Private MD: ED Physician Eugenio Abbasi HPI: 05/21 15:08 This 67 yrs old Female presents to ER via Ambulatory with complaints of Pelvic Pain. rn 15:08 The patient presents with abdominal pain in the lower abdomen. Onset: The rn symptoms/episode began/occurred yesterday. The symptoms do not radiate. Associated signs and symptoms: Pertinent negatives: blood in stools, chest pain, constipation, diarrhea, dysuria, fever, hematuria, vomiting. The symptoms are described as achy, crampy. Modifying factors: The symptoms are alleviated by nothing, the symptoms are aggravated by nothing. Severity of pain: At its worst the pain was moderate in the emergency department the pain has improved. The patient has not experienced similar symptoms in the past. Patient reports has a known endometrial cancer with recent diagnosis and initiation of chemotherapy just last week. Patient reports yesterday started to have lower abdominal cramping, no vaginal bleeding, no rash, no significant discharge. No fever or chills. No vomiting or diarrhea. No blood in stools. Not getting radiation. Called her cancer doctor and told to go to the emergency room for imaging to make sure no complications from recent ex lap.. Historical: - Allergies: 15:00 Lisinopril; bp - PMHx: 15:00 CANCER; Hypertensive disorder; Hypercholesterolemia; Kidney disease; bp - Immunization history:: Adult Immunizations up to date. - Social history:: Smoking status: Patient denies any tobacco usage or history of. - Family history:: not pertinent. - Hospitalizations: : No recent hospitalization is reported. ROS: 15:08 Constitutional: Negative for fever, chills, and weight loss, Cardiovascular: Negative rn for chest pain, palpitations, and edema, Respiratory: Negative for shortness of breath, cough, wheezing, and pleuritic chest pain, Abdomen/GI: Positive for lower abdominal pain Back: Negative for injury and pain, : Negative for injury, bleeding, discharge, and swelling, MS/Extremity: Negative for injury and deformity, Skin: Negative for injury, rash, and discoloration, Neuro: Negative for headache, weakness, numbness, tingling, and seizure, Exam: 15:08 Constitutional: This is a well developed, well nourished patient who is awake, alert, rn and in no acute distress. Cardiovascular: Regular rate and rhythm. No pulse deficits. Respiratory: No increased work of breathing, no retractions or nasal flaring. Abdomen/GI: Soft, mild suprapubic abdominal tenderness, no guarding or rebound. MS/ Extremity: Pulses equal, no cyanosis Neuro: Awake and alert, GCS 15 Vital Signs: 14:58 BP 136 / 95; Pulse 76; Resp 16; Temp 97.5; Pulse Ox 97% ; Weight 77.11 kg; Height 5 ft. bp 0 in. ; 17:28 BP 129 / 88; Pulse 79; Resp 18; Pulse Ox 98% on R/A; ld1 14:58 Body Mass Index 33.20 (77.11 kg, 152.4 cm) bp MDM: 14:56 Patient medically screened. rn 17:16 Differential diagnosis: appendicitis, bowel obstruction, non-specific abd pain, rn Ureterolithiasis, urinary tract infection, Pain from her cancer, complication from recent exploratory laparotomy. Data reviewed: vital signs, nurses notes, lab test result(s), radiologic studies, CT scan, and as a result, I will discharge patient. Counseling: I had a detailed discussion with the patient and/or guardian regarding the historical points, exam findings, and any diagnostic results supporting the discharge/admit diagnosis, lab results, radiology results, the need for outpatient follow up, to return to the emergency department if symptoms worsen or persist or if there are any questions or concerns that arise at home. Special discussion: I discussed with the patient/guardian in detail that at this point there is no indication for admission to the hospital. It is understood, however, that if the symptoms persist or worsen the patient needs to return immediately for re-evaluation. 05/21 15:05 Order name: CBC with Diff; Complete Time: 16: rn 05/21 15:05 Order name: CMP; Complete Time: 16: rn 05/21 15:05 Order name: Lipase; Complete Time: 16:23 rn 05/21 15:05 Order name: Urinalysis w/ reflexes; Complete Time: 16: rn 05/21 15:05 Order name: CT Abd/Pelvis - IV Contrast Only; Complete Time: 17:10 rn 05/21 15:05 Order name: IV Saline Lock; Complete Time: 15:39 rn 05/21 15:05 Order name: Labs collected and sent; Complete Time: 15:39 rn Administered Medications: No medications were administered Disposition Summary: 05/21/23 17:18 Discharge Ordered Notes: Location: Home rn Problem: new rn Symptoms: have improved rn Condition: Stable rn Diagnosis - Lower abdominal pain, unspecified rn Followup: rn - With: Private Physician - When: As needed - Reason: Recheck today's complaints, Re-evaluation by your physician Discharge Instructions: - Discharge Summary Sheet rn - Abdominal Pain, Adult rn - Pain Without a Known Cause rn Forms: - Medication Reconciliation Form rn - Thank You Letter rn - Antibiotic internal carver - Prescription Opioid Use rn - Patient Portal Instructions rn - Leadership Thank You Letter rn Signatures: Dispatcher [employer] Eugenio Santo MD MD rn Peltier, Brian, RN RN bp
--- NOTE | 2023-05-21 17:19 | ER ---
Nurse's Notes [facility] Name: Regina Mcknight Age: 67 yrs Sex: Female : 1955 Arrival Date: 05/21/2023 Time: 14:42 Bed 7 Private MD: Diagnosis: Lower abdominal pain, unspecified Presentation: 05/21 14:58 Chief complaint: Patient states: SHOOTING PELVIC PAINS LAST NIGHT. DX WITH ENDOMETRIAL bp CANCER , UNSUCCESSFUL HYSTERECTOMY TUESDAY 2/2 EXTENT OF CANCER, CHEMO STARTED YESTERDAY. Coronavirus screen: At this time, the client does not indicate any symptoms associated with coronavirus-19. Ebola Screen: No symptoms or risks identified at this time. Initial Sepsis Screen: Does the patient meet any 2 criteria? No. Patient's initial sepsis screen is negative. Does the patient have a suspected source of infection? No. Patient's initial sepsis screen is negative. Risk Assessment: Do you want to hurt yourself or someone else? Patient reports no desire to harm self or others. Onset of symptoms was May 20, 2023 at 21:00. 14:58 Method Of Arrival: Ambulatory bp 14:58 Acuity: LILIA 3 bp Triage Assessment: 15:00 General: Appears uncomfortable, Behavior is cooperative, appropriate for age, anxious. bp Pain: Complains of pain in pelvis. Historical: - Allergies: 15:00 Lisinopril; bp - PMHx: 15:00 CANCER; Hypertensive disorder; Hypercholesterolemia; Kidney disease; bp - Immunization history:: Adult Immunizations up to date. - Social history:: Smoking status: Patient denies any tobacco usage or history of. - Family history:: not pertinent. - Hospitalizations: : No recent hospitalization is reported. Screenin:46 [facility] ED Fall Risk Assessment (Adult) History of falling in the last 3 months, ld1 including since admission No falls in past 3 months (0 pts). Abuse screen: Denies threats or abuse. Denies injuries from another. Nutritional screening: No deficits noted. Tuberculosis screening: No symptoms or risk factors identified. Assessment: 15:46 General: Appears in no apparent distress. uncomfortable, Behavior is calm, cooperative, ld1 appropriate for age. Pain: Complains of pain in pelvis Pain does not radiate. Pain currently is 8 out of 10 on a pain scale. Quality of pain is described as sharp, shooting, Pain began 1 day ago. Is continuous. Neuro: Level of Consciousness is awake, alert, obeys commands, Oriented to person, place, time, situation. Cardiovascular: Capillary refill < 3 seconds Patient's skin is warm and dry. Respiratory: Airway is patent Respiratory effort is even, unlabored. GI: Abdomen is round non-distended. : No signs and/or symptoms were reported regarding the genitourinary system. EENT: No signs and/or symptoms were reported regarding the EENT system. Derm: No signs and/or symptoms reported regarding the dermatologic system. Musculoskeletal: No signs and/or symptoms reported regarding the musculoskeletal system. 17:28 Reassessment: Patient appears in no apparent distress at this time. No changes from ld1 previously documented assessment. Patient and/or family updated on plan of care and expected duration. Pain level reassessed. Patient is alert, oriented x 3, equal unlabored respirations, skin warm/dry/pink. Vital Signs: 14:58 BP 136 / 95; Pulse 76; Resp 16; Temp 97.5; Pulse Ox 97% ; Weight 77.11 kg; Height 5 ft. bp 0 in. ; 17:28 BP 129 / 88; Pulse 79; Resp 18; Pulse Ox 98% on R/A; ld1 14:58 Body Mass Index 33.20 (77.11 kg, 152.4 cm) bp ED Course: 14:46 Patient arrived in ED. ts1 14:56 Eugenio Abbasi MD is Attending Physician. rn 15:00 Triage completed. bp 15:02 Arm band placed on. bp 15:46 Zoraida Jaramillo, RN is Primary Nurse. ld1 15:46 Patient has correct armband on for positive identification. Placed in gown. Bed in low ld1 position. Call light in reach. Side rails up X2. bus monitor on. Pulse ox on. NIBP on. Door closed. Noise minimized. Warm blanket given. 15:46 No provider procedures requiring assistance completed. ld1 15:47 CBC with Diff Sent. ld1 15:47 CMP Sent. ld1 15:47 Lipase Sent. ld1 16:33 CT Abd/Pelvis - IV Contrast Only In Process Unspecified. EDMS 17:28 IV discontinued, intact, bleeding controlled, No redness/swelling at site. ld1 Administered Medications: No medications were administered Medication: 15:46 VIS not applicable for this client. ld1 Outcome: 17:18 Discharge ordered by . rn 17:28 Discharged to home ambulatory, ld1 17:28 Condition: stable 17:28 Discharge instructions given to patient, Instructed on discharge instructions, follow up and referral plans. Demonstrated understanding of instructions, follow-up care, 17:28 Patient left the ED. ld1 Signatures: Dispatcher [employer] EDMS Eugenio Abbasi MD MD rn Peltier, Brian RN RN Zoraida Ann RN RN ld1 Susy Grady PAS PAS ts1
[2023-05-21 17:49] VITALS: BP 129/88; TEMP 97.5; O2SAT 98
== END ==
LOC: ER 14:42
DX: R10.30 Lower abdominal pain, unspecified (principal); R10.2 Pelvic and perineal pain; C54.1 Malignant neoplasm of endometrium; Z88.8 Allergy status to other drugs, medicaments and biological substances
CPT/HCPCS: 85025; 81001; 36415; 83690; 80053; 74177; 99284; Q9967